=== PATIENT | male | born 1985 | race American Indian/Alaskan Native ===

== ENCOUNTER 2016-09-04 15:59 | Outpatient (CLI) | payer BC ==
--- NOTE | 2016-09-04 16:22 | XRay Report ---
Left knee: There is minimal articular spurring involving both the lateral and medial margins of the tibial plateau. The articular margins are smooth and the knee is aligned. The joint spaces are preserved. There is no swelling and no effusion. Impression: Mild degenerative spurring.
== END 2016-09-04 16:00 | disposition home or self-care (01) ==
LOC: XRAY 15:59
PROVIDERS: ATTEND Internal Medicine
DX: M25.462 Effusion, left knee (principal)

== ENCOUNTER 2016-10-09 06:09 | Day surgery (SDC) | payer BC ==
[~2016-10-09 06:09] MED LIST: ANCEF/STERILE WATER 2 GM/20 ML IV NR; LACTATED RINGERS 1,000 ML IV SCH; PEPCID PO NR; VERSED IV NR
[2016-10-09] MEDS ORDERED: NACL BACTERIOSTATIC INFILTRATI ONE (06:42)
[2016-10-09] MEDS ORDERED: ZOFRAN IV PRN (06:53)
--- NOTE | 2016-10-09 06:53 | Anesthesia Day of Surgery ---
Anesthesia Day of Surgery - Day of Surgery Patient Examined: Yes Patient H&P Reviewed: Yes Patient is NPO: Yes
--- NOTE | 2016-10-09 06:53 | Anesthesia Consultation ---
Anesthesia Consult and Med Hx Date of service: 10/09/16 - Airway Anesthetic Teeth Evaluation: Good ROM Head & Neck: Adequate Mental/Hyoid Distance: Adequate Mallampati Class: Class III Intubation Access Assessment: Possibly Difficult - Pulmonary Exam CTA: Yes - Cardiac Exam Cardiac Exam: RRR - Pre-Operative Health Status ASA Pre-Surgery Classification: ASA2 Proposed Anesthetic Plan: General - Pulmonary Hx Smoking: Yes (CIGARETTES 1/2 PPD X 13 YRS) Hx Sleep Apnea: No - Cardiovascular System Hx Hypertension: No Hx Coronary Artery Disease: No - Central Nervous System Hx Seizures: No CVA: No Hx Psychiatric Problems: No - Endocrine Hx End Stage Renal Disease: No Hx Cirrhosis: No Hx Non-Insulin Dependent Diabetes: No - Other Systems Hx Alcohol Use: Yes (2 TO 3 BEERS DAILY) Hx Cancer: No Hx Obesity: Yes
[2016-10-09] MEDS ORDERED: ZEMURON IV ONE (07:28)
[2016-10-09] MEDS ORDERED: QUELICIN ONE (07:28)
[2016-10-09] MEDS ORDERED: XYLOCAINE MPF 2% ONE (07:28)
[2016-10-09] MEDS ORDERED: ZOFRAN ONE (07:28)
[2016-10-09] MEDS ORDERED: DIPRIVAN 10 MG/ML IV ONE (07:28)
[2016-10-09] MEDS ORDERED: VERSED ONE (07:28)
[2016-10-09] MEDS ORDERED: SUBLIMAZE ONE (07:28)
[2016-10-09] MEDS ORDERED: ePHEDrine SULFATE ONE (08:33)
[2016-10-09] MEDS ORDERED: NACL 0.9% IR ONE (09:16)
[2016-10-09] MEDS ORDERED: MARCAINE-EPI 0.25%-1:200,000 INFILTRATI ONE (09:17)
[2016-10-09] MEDS ORDERED: ROBINUL ONE (09:32)
[2016-10-09] MEDS ORDERED: NEOSTIGMINE ONE (09:32)
[2016-10-09] MEDS ORDERED: TORADOL ONE (09:33)
--- NOTE | 2016-10-09 10:13 | Operative Report ---
Operative Report Operative Report: [Date of procedure: 10/09/2016 Pre-operative diagnosis: Incarcerated ventral hernia Post-operative diagnosis: Incarcerated Ventral and umbilical hernia Procedure name(s): Laparoscopic ventral and umbilical hernia repair with mesh Surgeon: Leighann Packer MD Streetcar Repairer Helper: None Anesthesia: General, 0.25% Marcaine EBL: Minimal Complications: None Instrument Count: Correct Indications: This is a 31 -year-old patient presents with a incarcerated ventral hernia that is now causing symptoms. The patient was offered the above- named procedures possible treatment modality. The risks and benefits discussed until all questions were answered. The patient was subsequent brought to the OR. Findings: Incarcerated ventral hernia 2, reducible umbilical hernia Procedure: The patient was placed supine on the table. We reviewed the informed consent. After adequate anesthesia. He was prepped and draped in the usual sterile fashion. A 5 mm incision was made in the right quadrant. Using Optiview technique we placed a 5 mm port at this position. The abdomen was then insufflated to 15 mm mercury. We introduced the camera and examined the abdomen. We began examining the defect. At this time we placed a 10 mm right lower quadrant port under direct vision and after infiltration of local anesthetic. A 5 mm left upper quadrant port was also placed. We then decreased the intra-abdominal pressure. We then chose a 4 x 6"" proceed mesh with a central 2-0 Vicryl transfascial stitch. This was introduced into the abdomen through the 10 mm port. We used a suture passer to center the mesh over the middle of the defects. We then secured the edges of the mesh using a pro-tack device. A double crown technique was used to place the tacks. We had good coverage of the hernia defect. We then evacuated the insufflation. Removed all ports and closed all port sites using a 4-0 Monocryl in a subcuticular fashion. The patient tolerated the procedure well. He was awakened, extubated , and transferred to PACU in no apparent distress.]
--- NOTE | 2016-10-09 10:18 | Short Stay Summary ---
Short Stay Documentation Date of service: 10/09/16 - History H&P: obtained from office - Allergies and Medications Current Medications: Allergies No Known Allergies Allergy (Unverified 10/28/15 14:12) Home Medications Medication Instructions Recorded Confirmed Last Taken Type No Known Home Medications [No 10/03/16 10/03/16 Unknown History Reported Home Medications] Active Medications Cefazolin Sodium (Ancef/Sterile Water 2 Gm/20 Ml) 2 gm IV PREOP NR Stop: 10/09/16 23:59 Famotidine (Pepcid) 20 mg PO PREOP NR Stop: 10/09/16 23:59 Last Admin: 10/09/16 06:40 Dose: 20 mg Hydromorphone HCl (Dilaudid) 0.5 mg IV Q10MIN PRN PRN Reason: Pain , Severe (7-10) Stop: 10/09/16 16:00 Lactated Ringer's (Lactated Ringers) 1,000 mls @ 75 mls/hr IV DIRECT PHI Last Admin: 10/09/16 06:48 Dose: 75 mls/hr Midazolam HCl (Versed) 2 mg IV PREOP NR Stop: 10/09/16 23:59 Last Admin: 10/09/16 06:58 Dose: 2 mg - Brief post op/procedure progress note Date of procedure: 10/09/16 Pre-op diagnosis: incarcerated ventral hernia Post-op diagnosis: other (incarcerated ventral hernia 2, reducible umbilical hernia) Procedure: Laparoscopic incarcerated ventral hernia repair 2 with umbilical hernia repair using mesh Anesthesia: GETA Findings: As above Surgeon: BRETT COATES Estimated blood loss: minimal Pathology: none Condition: stable - Disposition Condition at discharge: Stable Disposition: DISCHARGED TO HOME OR SELFCARE Short Stay Discharge Plan Diet: regular Wound: keep clean and dry Follow up with: HONORIO OWENS MD [Primary Care Provider] - 7 Days BRETT COATES MD [Staff Physician] - 7 Days Prescriptions: Ibuprofen [Motrin 800 MG tab] 800 mg PO Q8HR #30 tablet oxyCODONE /ACETAMINOPHEN [Percocet 5/325] 1 tab PO Q6HR PRN #30 tablet PRN Reason: Pain
[2016-10-09] MEDS: DILAUDID IV PRN ×2 (11:25→11:35)
[2016-10-09] MEDS ORDERED: PERCOCET 5/325 PO PRN (11:30)
[2016-10-09 14:33] VITALS: BP 145/78
== END 2016-10-09 12:10 | disposition home or self-care (01) ==
LOC: OR 06:09
PROVIDERS: ATTEND Surgery
DX: K43.6 Other and unspecified ventral hernia with obstruction, without gangrene (principal); K42.9 Umbilical hernia without obstruction or gangrene; F17.210 Nicotine dependence, cigarettes, uncomplicated; G47.33 Obstructive sleep apnea (adult) (pediatric); E66.9 Obesity, unspecified; Z68.39 Body mass index [BMI] 39.0-39.9, adult; Z98.890 Other specified postprocedural states; Z72.89 Other problems related to lifestyle
CPT/HCPCS: 49653; C1781; J0330; J0690; J1170; J1885; J2250; J2405; J2704; J2710; J3010; J7120

== ENCOUNTER 2017-01-25 12:52 | Emergency (ER) | payer BC, OTHER ==
[2017-01-25 13:21] VITALS: BP 140/80
--- NOTE | 2017-01-25 13:24 | Emergency Department Report ---
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 One of the staff removed a Taser alber from his posterior triceps area. Another spontaneously fell out. The patient stated that he felt weird but did not pass out. He denied chest pain or shortness of breath. He denied any other specific symptom. He states his last tetanus shot was one year ago. -: Sudden Location: right, upper extremity Radiation: non-radiation Quality: sharp Consistency: now resolved Improves with: none Worsens with: none Associated Symptoms: denies other symptoms Treatments Prior to Arrival: none - Related Data Previous Rx's Medication Instructions Recorded Last Taken Type Ibuprofen [Motrin 800 MG tab] 800 mg PO Q8HR #30 tablet 10/09/16 Unknown Rx oxyCODONE /ACETAMINOPHEN [Percocet 1 tab PO Q6HR PRN #30 tablet 10/09/16 Unknown Rx 5/325] Allergies Allergy/AdvReac Type Severity Reaction Status Date / Time No Known Allergies Allergy Unverified 10/28/15 14:12 ED Review of Systems ROS: Stated complaint: TASER PROBE STUCK IN LEFT ARM Other details as noted in HPI Constitutional: denies: chills, fever Eyes: denies: eye pain, eye discharge, vision change Respiratory: denies: shortness of breath, wheezing Cardiovascular: denies: chest pain, palpitations Endocrine: no symptoms reported Gastrointestinal: denies: abdominal pain, nausea Musculoskeletal: joint swelling. denies: back pain, arthralgia Skin: denies: rash, lesions Neurological: weakness. denies: headache, paresthesias Psychiatric: denies: anxiety, depression ED Past Medical Hx - Past Medical History Previous Medical History?: No Hx Hypertension: No Hx Seizures: No Hx HIV: No - Surgical History Additional Surgical History: HERNIA REPAIR - Social History Smoking Status: Current Every Day Smoker - Medications Home Medications: Home Medications Medication Instructions Recorded Confirmed Last Taken Type Ibuprofen [Motrin 800 MG tab] 800 mg PO Q8HR #30 tablet 10/09/16 Unknown Rx oxyCODONE /ACETAMINOPHEN [Percocet 1 tab PO Q6HR PRN #30 tablet 10/09/16 Unknown Rx 5/325] ED Physical Exam - General Limitations: No Limitations General appearance: alert, in no apparent distress - Head Head exam: Present: atraumatic, normocephalic - Eye Eye exam: Present: normal appearance. Absent: scleral icterus - ENT ENT exam: Present: mucous membranes moist - Neck Neck exam: Present: normal inspection - Respiratory Respiratory exam: Present: normal lung sounds bilaterally. Absent: respiratory distress - Cardiovascular Cardiovascular Exam: Present: regular rate, normal rhythm. Absent: systolic murmur, diastolic murmur, rubs, gallop - GI/Abdominal GI/Abdominal exam: Present: soft, normal bowel sounds. Absent: distended, tenderness, guarding, rebound, rigid - Rectal Rectal exam: Present: deferred - Back Exam Back exam: Present: normal inspection - Neurological Exam Neurological exam: Present: alert, oriented X3, CN II-XII intact. Absent: motor sensory deficit - Psychiatric Psychiatric exam: Present: normal affect, normal mood - Skin Skin exam: Present: warm, dry, intact, normal color. Absent: rash ED Course Vital Signs 01/25/17 01/25/17 01/25/17 12:51 13:00 13:19 Temperature 98.5 F Pulse Rate 83 Respiratory 13 18 Rate Blood Pressure 140/80 [Right] O2 Sat by Pulse 97 Oximetry - Reevaluation(s) Reevaluation #1: Patient was observed. He had no further symptoms. He stated he felt back to normal. 01/25/17 13:55 ED Medical Decision Making - EKG Data -: EKG Interpreted by Me EKG shows normal: sinus rhythm, axis, intervals, QRS complexes, ST-T waves Rate: normal - EKG Data Interpretation: no acute changes, normal EKG Critical care attestation.: If time is entered above; I have spent that time in minutes in the direct care of this critically ill patient, excluding procedure time. ED Disposition Clinical Impression: Taser injury Qualifiers: Encounter type: initial encounter Qualified Code(s): T75.4XXA - Electrocution, initial encounter Disposition: DC-01 TO HOME OR SELFCARE Is pt being admited?: No Does the pt Need Aspirin: No Condition: Stable Additional Instructions: Return any further problem. Observe puncture wounds for any signs of infection. Referrals: usual, primary care [Other] - 3-5 Days Time of Disposition: 13:56
== END 2017-01-25 14:04 | disposition home or self-care (01) ==
LOC: ED 12:52
DX: T75.4XXA Electrocution, initial encounter (principal); F17.200 Nicotine dependence, unspecified, uncomplicated; Y35.891A Legal intervention involving other specified means, law enforcement official injured, initial encounter; Y93.89 Activity, other specified; Y99.0 Civilian activity done for income or pay; Y92.69 Other specified industrial and construction area as the place of occurrence of the external cause
CPT/HCPCS: 93005; 93010; 99282

== ENCOUNTER 2017-08-28 12:38 | Emergency (ER) | payer OTHER ==
[2017-08-28 13:34] VITALS: BP 138/59
[2017-08-28] MEDS ORDERED: TRIPLE ANTIBIOTIC TP ONE (15:10)
--- NOTE | 2017-08-28 15:13 | Emergency Department Report ---
- General Chief Complaint: Skin/Abscess/Foreign Body Stated Complaint: SCRATCHED BY PT. Time Seen by Provider: 08/28/17 14:20 Source: patient Mode of arrival: Ambulatory Limitations: No Limitations - History of Present Illness Initial Comments: 32-year-old male past medical history none presents with complaint of scratch to left hand adjacent to the thumb. 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 Patient states that as he was helping to transport a patient to a care home vehicle the patient suddenly flailed violently and scratched him on his left hand adjacent to his left thumb. Patient denies any other body fluid exposure denies any other injuries. Patient has visible superficial abrasion to back of the left thumb approximately 2 cm in length. No deep exposed tissue. Patient states his last tetanus update was in 2015. Patient states that immediately after injury occurred he washed his hands with soap and water at the site of the abrasion. Patient states that the patient he was assisting to transport may have a history of hepatitis C as per their medical record documentation. MR#[id number]. -: This morning Extremity Location: Left: Hand (abrasion to left thumb) Place: work Patient Tetanus UTD: Yes (updated as of 2015) Associated Symptoms: none - Related Data Previous Rx's Medication Instructions Recorded Last Taken Type Ibuprofen [Motrin 800 MG tab] 800 mg PO Q8HR #30 tablet 10/09/16 Unknown Rx oxyCODONE /ACETAMINOPHEN [Percocet 1 tab PO Q6HR PRN #30 tablet 10/09/16 Unknown Rx 5/325] Allergies Allergy/AdvReac Type Severity Reaction Status Date / Time No Known Allergies Allergy Unverified 10/28/15 14:12 ED Review of Systems ROS: Stated complaint: SCRATCHED BY PT. Other details as noted in HPI Constitutional: denies: chills, fever Eyes: denies: eye pain, eye discharge, vision change ENT: denies: ear pain, throat pain Respiratory: denies: cough, shortness of breath, wheezing Cardiovascular: denies: chest pain, palpitations Endocrine: no symptoms reported Gastrointestinal: denies: abdominal pain, nausea, diarrhea Genitourinary: denies: urgency, dysuria Musculoskeletal: denies: back pain, joint swelling, arthralgia Skin: denies: rash, lesions Neurological: denies: headache, weakness, paresthesias Psychiatric: denies: anxiety, depression Hematological/Lymphatic: denies: easy bleeding, easy bruising ED Past Medical Hx - Past Medical History Previous Medical History?: Yes Hx Hypertension: No Hx Seizures: No Hx HIV: No Additional medical history: hernia - Surgical History Past Surgical History?: Yes Additional Surgical History: HERNIA REPAIR - Social History Smoking Status: Never Smoker Substance Use Type: None - Medications Home Medications: Home Medications Medication Instructions Recorded Confirmed Last Taken Type Ibuprofen [Motrin 800 MG tab] 800 mg PO Q8HR #30 tablet 10/09/16 Unknown Rx oxyCODONE /ACETAMINOPHEN [Percocet 1 tab PO Q6HR PRN #30 tablet 10/09/16 Unknown Rx 5/325] ED Physical Exam - General Limitations: No Limitations General appearance: alert, in no apparent distress - Head Head exam: Present: atraumatic, normocephalic - Eye Eye exam: Present: normal appearance, PERRL, EOMI Pupils: Present: normal accommodation - ENT ENT exam: Present: mucous membranes moist - Neck Neck exam: Present: normal inspection - Respiratory Respiratory exam: Present: normal lung sounds bilaterally. Absent: respiratory distress - Cardiovascular Cardiovascular Exam: Present: regular rate, normal rhythm. Absent: systolic murmur, diastolic murmur, rubs, gallop - GI/Abdominal GI/Abdominal exam: Present: soft, normal bowel sounds - Rectal Rectal exam: Present: deferred - Extremities Exam Extremities exam: Present: normal inspection - Expanded Upper Extremity Exam Left Shoulder Exam: Present: normal inspection, full ROM Upper Arm exam: Present: normal inspection, full ROM Elbow exam: Present: normal inspection, full ROM Forearm Wrist exam: Present: normal inspection, full ROM Hand Wrist exam: Present: normal inspection, full ROM, abrasion (left thumb abrasion approximately 2 cm in length) Hand L/R Back: 1 - 2 cm straight abrasion here Neuro motor exam: Present: wrist extension intact, thumb opposition intact, thumb IP flexion intact, thumb adduction intact, fingers 2-5 abduction intact Vascular: Present: normal capillary refill, radial pulse, brachial pulse, ulnar pulse - Back Exam Back exam: Present: normal inspection - Neurological Exam Neurological exam: Present: alert, oriented X3 - Psychiatric Psychiatric exam: Present: normal affect, normal mood - Skin Skin exam: Present: warm, dry, intact, normal color. Absent: rash ED Course Vital Signs 08/28/17 13:31 Temperature 98.4 F Pulse Rate 75 Respiratory 14 Rate Blood Pressure 138/59 O2 Sat by Pulse 100 Oximetry ED Medical Decision Making - Medical Decision Making A/P: Abrasion, percutaneous employee exposure 1-triple antibiotic ointment to area, patient's tetanus vaccine status is up-to- date 2-I followed body fluid exposure guidelines in the charge nurse and book for employees. I spoke Employee Health RN Ms. Zaidi, pt has f/u appt tomorrow 3-I discussed with Mr. Kwok the option of taking HIV prophylaxis and discussed with him his risk of exposure based on exposure tight. Patient elected to not take HIV prophylaxis at this time. There is no known prophylaxis that is clinically useful for hepatitis C. I advised him to follow- up with [facility] and infectious disease for repeat labs within 6-8 weeks to see if there are any changes in his HIV or hepatitis titers. Critical care attestation.: If time is entered above; I have spent that time in minutes in the direct care of this critically ill patient, excluding procedure time. ED Disposition Clinical Impression: Abrasion, Occupational exposure in workplace Disposition: DC-01 TO HOME OR SELFCARE Is pt being admited?: No Does the pt Need Aspirin: No Condition: Stable Additional Instructions: Patient advised to follow-up with [facility] as soon as possible. Basic postexposure labs and titers sent Referrals: [facility] [LAB/CONTRACT] - 3-5 Days Time of Disposition: 15:27
[2017-08-28 15:36] LABS: Basophils # (Auto) 0.1 K/mm3 (0.0-0.1); Basophils % (Auto) 1.2 % (0.0-1.8); Eosinophils # (Auto) 0.1 K/mm3 (0.0-0.4); Eosinophils % (Auto) 2.3 % (0.0-4.3); Hematocrit 43.4 % (35.5-45.6); Hemoglobin 14.6 gm/dl (11.8-15.2); Lymphocytes # (Auto) 1.7 K/mm3 (1.2-5.4); Mean Corpuscular HGB Conc 34 % (32-34); Mean Corpuscular Hemoglobin 31 pg (28-32); Mean Corpuscular Volume 92 fl (84-94); Monocytes # (Auto) 0.4 K/mm3 (0.0-0.8); Platelet Count 202 K/mm3 (140-440); Red Cell Distribution Width 13.6 % (13.2-15.2)
[2017-08-28 15:56] LABS: BUN/Creatinine Ratio 18; Blood Urea Nitrogen 16 mg/dL (9-20); Calcium 9.6 mg/dL (8.4-10.2); Hemolysis Index 40
[2017-08-28 16:10] LABS: Hepatitis A Antibody IgM Non-Reactive (NonReactive); Hepatitis B Core IgM Non-Reactive (NonReactive); Hepatitis B Surface Antigen Non-Reactive (Negative); Hepatitis C Virus Antibody Non-Reactive (NonReactive)
== END 2017-08-28 15:32 | disposition home or self-care (01) ==
LOC: ED 12:38
DX: S60.312A Abrasion of left thumb, initial encounter (principal); W50.4XXA Accidental scratch by another person, initial encounter; Y93.89 Activity, other specified; Y92.89 Other specified places as the place of occurrence of the external cause; Y99.8 Other external cause status
CPT/HCPCS: 36415; 80048; 80074; 85025; 99283; A6250

== ENCOUNTER 2018-12-30 12:24 | Outpatient (CLI) | payer BC ==
--- NOTE | 2018-12-30 14:08 | XRay Report ---
Bilateral feet, 3 views History: Bilateral foot pain. Findings: There is normal bone mineralization. No evidence for fracture, erosive joint pathology or bone lesion. Moderate joint space narrowing is identified at the first metatarsophalangeal joint of the right foot. Mild degenerative spurring is noted in the mid feet bilaterally. The remaining joint spaces are within normal limits. Normal soft tissues. Impression: Degenerative findings as described.
== END 2018-12-30 12:25 | disposition home or self-care (01) ==
LOC: XRAY 12:24
PROVIDERS: ATTEND Podiatrist Foot & Ankle Surgery
DX: M19.072 Primary osteoarthritis, left ankle and foot (principal); M19.071 Primary osteoarthritis, right ankle and foot; M77.52 Other enthesopathy of left foot and ankle; M77.51 Other enthesopathy of right foot and ankle; E66.9 Obesity, unspecified